=== PATIENT | male | born 1945 | race Two or more races ===

== ENCOUNTER → 2024-07-02 | Outpatient (CLI) | payer OTHER, SELFPAY ==
[2024-07-09 11:21] LABS: PSA, Free 1.56 ng/mL; PSA, Total 8.3 ng/mL (< OR = 4.0)
[2024-07-10 06:25] LABS: PSA, % Free 19 % (calc) (>25)
== END | disposition home or self-care (01) ==
PROVIDERS: PCP Nurse Practitioner Family; Referring Provider Urology; Visit Provider Urology
DX: N40.1 Benign prostatic hyperplasia with lower urinary tract symptoms (principal)
CPT/HCPCS: 36415; 84153; 84154

== ENCOUNTER → 2024-09-15 | Outpatient (BNVA) | payer OTHER, SELFPAY | END | disposition home or self-care (01) | PROVIDERS: PCP Nurse Practitioner Family; Referring Provider Nurse Practitioner Family; Visit Provider Urology | DX: N40.1 Benign prostatic hyperplasia with lower urinary tract symptoms (principal); N13.8 Other obstructive and reflux uropathy; R97.20 Elevated prostate specific antigen [PSA]; R31.29 Other microscopic hematuria; I10 Essential (primary) hypertension; E11.9 Type 2 diabetes mellitus without complications; I25.10 Atherosclerotic heart disease of native coronary artery without angina pectoris; Z95.0 Presence of cardiac pacemaker; Z96.641 Presence of right artificial hip joint; E66.9 Obesity, unspecified; Z68.26 Body mass index [BMI] 26.0-26.9, adult | CPT/HCPCS: 99212; G0463 ==

== ENCOUNTER → 2024-12-19 | Outpatient (CLI) | payer OTHER, SELFPAY ==
[2024-12-19 08:44] LABS: Basophils # (Auto) 0.1 Thou/mm3 (0.0-0.2); Basophils % (Auto) 1 % (0-2.5); Eosinophils # (Auto) 0.2 Thou/mm3 (0.0-0.5); Eosinophils % (Auto) 3 % (0-10); Hematocrit 34.5 % (41.0-53.0); Hemoglobin 11.5 g/dL (13.5-16.0); Immature Granulocytes % (Auto) 0 % (0-0); Immature Granulocytes Auto 0.02 Thou/mm3 (0.00-0.00); Lymphocytes # (Auto) 1.4 Thou/mm3 (1.0-4.8); Lymphocytes % (Auto) 24 % (10-50); Mean Corpuscular HGB Conc 33.3 g/dl (31.0-37.0); Mean Corpuscular Hemoglobin 29.4 pg (25.0-35.0); Mean Corpuscular Volume 88 fL (80-100); Monocytes # (Auto) 0.4 Thou/mm3 (0.0-0.8); Monocytes % (Auto) 6 % (0-12); Neutrophils # (Auto) 3.8 Thou/mm3 (1.8-7.7); Neutrophils % (Auto) 66 % (37-80); Nucleated Red Blood Cell % 0 /100 WBC (0); Platelet Count 210 Thou/mm3 (140-440); RDW Standard Deviation 46.1 fL (35.1-43.9); Red Blood Count 3.91 Miln/mm3 (4.50-5.90); White Blood Count 5.8 Thou/mm3 (3.8-10.6)
[2024-12-19 08:48] LABS: Glucose Estimated Average 131 mg/dL (80-131); Hemoglobin A1C 6.2 % Hgb (4.8-6.0)
[2024-12-19 09:13] LABS: Iron 93 mcg/dL (65-175)
[2024-12-19 09:14] LABS: Alanine Aminotransferase 11 U/L (10-49); Albumin, Serum 4.5 gm/dL (3.4-4.8); Albumin/Globulin Ratio 2.4 (1.2-2.2); Alkaline Phosphatase 85 U/L (46-116); Anion Gap 12 (7-16); Aspartate Amino Transferase 15 U/L (0-34); BUN/Creatinine Ratio 28 Ratio (12-20); Bilirubin,Total 0.9 mg/dL (0.3-1.2); Blood Urea Nitrogen 31 mg/dL (9-23); Calcium 10.1 mg/dL (8.3-10.6); Calcium (Corrected) 10.1 mg/dL (8.5-10.1); Carbon Dioxide 27.9 mMol/L (20.0-31.0); Cardiac Risk Estimate 2.7 RATIO (4.0-6.7); Chloride 105 mMol/L (98-107); Cholesterol 147 mg/dL (132-200); Creatinine (Component) 1.1 mg/dL (0.6-1.3); Globulin 1.9 gm/dL (2.3-3.5); Glucose 114 mg/dL (74-106); HDL Cholesterol 54 mg/dL (40-60); LDL Cholesterol,Calculated 78 mg/dL (0-130); Osmolality,Calculated 296 (275-295); Sodium 145 mMol/L (136-145); Thyroid Stimulating Hormone 1.49 uIU/mL (0.55-4.78); Total Protein 6.4 gm/dL (5.7-8.2); Triglycerides 73 mg/dL (30-150); eGFR > 60 See Note
[2024-12-19 09:15] LABS: Vitamin B12 588 pg/mL (211-911)
== END | disposition home or self-care (01) ==
PROVIDERS: PCP Nurse Practitioner Family; Referring Provider Nurse Practitioner Family; Visit Provider Nurse Practitioner Family
DX: D64.9 Anemia, unspecified (principal); E11.9 Type 2 diabetes mellitus without complications; E78.2 Mixed hyperlipidemia; I10 Essential (primary) hypertension
CPT/HCPCS: 36415; 80053; 80061; 82043; 82570; 82607; 83036; 83540; 84443; 85025

== ENCOUNTER 2025-01-02 09:35 | Emergency (ER) | payer OTHER, MEDICAID, SELFPAY ==
[2025-01-02 09:41] VITALS: BP 203/91; BP 232/109; PULSE 60; RESP 19; TEMP 37.1; O2SAT 98; BMI 22.7
[2025-01-02 09:57] VITALS: PULSE 84; RESP 16; O2SAT 97
--- NOTE | 2025-01-02 09:59 | EKG_ITS ---
[facility] Test Date: 2025-01-02 Pat Name: KARLOS STOKES Department: Room: - Gender: Male Nursing Admin: : 1945 Requested By: Nelson Aparicio Order Number: [id number] Reading MD: Nelson Aparicio Measurements Intervals [place] Rate: 60 P: 123 NC: 198 QRS: 3 QRSD: 112 T: 105 QT: 423 QTc: 423 Interpretive Statements ELECTRONIC ATRIAL PACEMAKER LEFT VENTRICULAR HYPERTROPHY AND ST-T CHANGE [VOLTAGE CRITERIA PLUS ST/T ABNORMALITY] Compared to ECG 12/19/2023 10:36:05 Left ventricular hypertrophy now present ST (T wave) deviation now present T-wave abnormality no longer present /store/S0/[id number].pdf
--- NOTE | 2025-01-02 09:59 | PD.EDADULT ---
ED General RME/HPI General Chief complaint: Fall Stated complaint: FALL WITH LAC TO LIP/CHIN, LOOSE TOOTH, NLOC Time Seen by Provider: 01/02/25 09:38 Arrival date/time: 01/02/25 09:35 Limitations: no limitations RME / HPI RME / HPI narrative: DR. APARICIO MAIN ED EVALUATION: 79 year old male presents to the Emergency Department [facility] with complaint of fall prior to arrival. Patient uses a walker to ambulate and his walker was going to fast for him and so he fell forward. He has a laceration on his lower lip but otherwise tooth is intact. No other injuries or symptoms reported at this time. Related Data Home Medications ?Medication ?Instructions ?Recorded ?Confirmed aspirin 81 mg tablet,delayed 81 mg PO QDAY 11/19/18 09/15/24 release (Aspir-) Held on 12/21/23. Instructions: PCP to resume metformin 500 mg tablet,extended 1,000 mg PO QPM 09/17/20 09/15/24 release 24 hr atorvastatin 20 mg tablet 40 mg PO QDAY 12/19/23 09/15/24 cholecalciferol (vitamin D3) 50 12/19/23 09/15/24 mcg (2,000 unit) tablet (Vitamin D3) clopidogrel 75 mg tablet 75 mg PO QDAY 12/19/23 09/15/24 Held on 12/21/23. Instructions: PCP to resume hydrochlorothiazide 12.5 mg capsule 12.5 mg PO QDAY 12/19/23 09/15/24 losartan 100 mg tablet 100 mg PO QDAY 12/19/23 09/15/24 sitagliptin phosphate 50 mg tablet 50 mg PO QDAY 12/19/23 09/15/24 (Januvia) Previous Rx's ?Medication ?Instructions ?Recorded tamsulosin 0.4 mg capsule (Flomax) 0.4 mg PO QDAY #30 caps 09/22/20 sennosides 8.6 mg tablet (Senna 8.6 mg PO BID PRN Constipation #0 12/21/23 Lax) tabs amlodipine 5 mg tablet 5 mg PO QDAY #30 tabs 12/23/23 sertraline 50 mg tablet 50 mg PO QDAY #30 tabs 12/23/23 amoxicillin 875 mg-potassium 1 tab PO BID #14 tabs 01/02/25 clavulanate 125 mg tablet Allergies Allergy/AdvReac Type Severity Reaction Status Date / Time Penicillins AdvReac Severe MADE FEEL Verified 01/02/25 10:03 LIKE HE WAS GOING TO FAINT Review of Systems Review of Systems Systems Reviewed: All systems reviewed, normal except as documented Past Medical History Past Medical History NEUROLOGIC: Positive Cerebrovascular Accident; Negative Seizures CARDIAC: Positive Coronary Artery Disease, Hypercholesterolemia and Hypertension; Negative Congestive Heart Failure RESPIRATORY: Negative Chronic Obstructive Pulmonary Disease (COPD) GENITOURINARY: Negative Renal Disease ENDOCRINE: Positive Diabetes Mellitus Type 2; Negative Diabetes Mellitus Type 1 OTHER HISTORY: Negative Blood Transfusions, Blood Transfusion Reaction or Anesthesia Reactions Surgical History SURGICAL: Positive Coronary Stent Social History SMOKING STATUS: Never smoker SUBSTANCE USE: does not use ED Exam General Limitations: Present no limitations General appearance: Present alert and in no apparent distress Expanded Head Exam Head image:  1. lower lip laceration Eye Eye exam: Present normal appearance, PERRL and EOMI ENT ENT exam: Present normal exam, normal oropharynx and mucous membranes moist Neck Neck exam: Present normal inspection, full ROM and trachea midline Chest Chest inspection: Present normal inspection and symmetric chest wall rise Respiratory Respiratory exam: Present normal lung sounds bilaterally Cardiovascular Cardiovascular exam: Present regular rate, normal rhythm and normal heart sounds Abdominal Exam Abdominal exam: Present soft and normal bowel sounds Extremities Exam Extremities exam: Present normal inspection and full ROM Back Exam Back exam: Present normal inspection and full ROM Neurological Exam Neurological exam: Present alert, oriented X3 and CN II-XII intact Psychiatric Psychiatric exam: Present normal affect and normal mood Skin Skin exam: Present warm, dry, intact and normal color Course Quality Measures none Orders Category Date Time Status Continuous Pulse Oximetry ONCE Care 01/02/25 09:59 Active EKG (ED ONLY) *Do not use* NOW Care 01/02/25 09:59 Completed Insert IV STAT Care 01/02/25 09:[address] facial bones wo con Stat Exams 01/02/25 09:59 Completed EKG (ED Only) Stat Exams 01/02/25 09:59 Draft B-Type Natriuretic Peptide Stat Lab 01/02/25 10:18 Completed CBC Stat Lab 01/02/25 10:18 Completed Comprehensive Metabolic Panel Stat Lab 01/02/25 10:18 Completed Prothrombin Time with INR Stat Lab 01/02/25 10:18 Completed Troponin I Stat Lab 01/02/25 10:18 Completed Acetaminophen Tab [Tylenol ES Tab] Med 01/02/25 11:49 Once 1,000 mg PO X1 ONE hydrALAZINE INJ [Apresoline Inj] Med 01/02/25 10:00 Discontinued 20 mg IVP X1 ONE Vital Signs Vital signs: Vital Signs Temperature 98.7 F 01/02/25 09:41 Pulse Rate 60 01/02/25 09:41 Respiratory Rate 19 01/02/25 09:41 Blood Pressure 203/91 H 01/02/25 09:41 Pulse Oximetry (%) 98 01/02/25 09:41 Oxygen Delivery Method Room Air 01/02/25 09:41 Discharge Plan Plan Patient Disposition: HOME (Self Care) Patient condition on transfer: Stable Prescriptions/Referrals Prescriptions/Med Rec: New amoxicillin-pot clavulanate 875-125 mg tablet 1 tab PO BID Qty: 14 0RF No Action aspirin [Aspir-81] 81 mg Tablet,Delayed Release (Dr/Ec) 81 mg PO QDAY metformin 500 mg tablet extended release 24 hr 1,000 mg PO QPM Patient Comments: TAKE 4 TABLET BY MOUTH IN THE EVENING WITH MEALS tamsulosin [Flomax] 0.4 mg Capsule 0.4 mg PO QDAY Qty: 30 0RF Januvia 50 mg Tablet 50 mg PO QDAY cholecalciferol (vitamin D3) [Vitamin D3] 50 mcg (2,000 unit) Tablet atorvastatin 20 mg Tablet 40 mg PO QDAY clopidogrel 75 mg Tablet 75 mg PO QDAY hydrochlorothiazide 12.5 mg Capsule 12.5 mg PO QDAY losartan 100 mg Tablet 100 mg PO QDAY sennosides [Senna Lax] 8.6 mg Tablet 8.6 mg PO BID PRN (Reason: Constipation) Qty: 0 0RF amlodipine 5 mg tablet 5 mg PO QDAY Qty: 30 0RF sertraline 50 mg tablet 50 mg PO QDAY Qty: 30 0RF Referrals: Stephanie James NP [Primary Care Provider] - In 1 week Problem List Clinical Impression: Fall, Laceration of lip Patient/Caregiver Discharge Instructions Print Language: Estonian Stand Alone Forms: Lauryn Award Info., Patient Portal Info Letter MDM Clinical Information Provided by patient and EMS Medical Records Reviewed EMS Meds/Rx Considered, not Ordered None Labs/Rad/Tests considered, not Ordered None Chronic Illness/Social Conditions which may negatively complicate care or outcome(s)-explain: None or not applicable EKG EKG Interpretation narrative: My interpretation: EKG performed at 1037 hours, paced atrial rhythm, rate 60 Imaging Radiology reports / interpretation(s): Procedure(s): CT facial bones wo con Accession Number(s): [id number] cc: Stephanie James NP; Nelson Aparicio MD; Martin Hill MD~ Examination: CT maxillofacial, without intravenous contrast. 2-D sagittal reconstructions. 3-D reconstructions. Date and time of exam:January 02, 2025 1030 hours INDICATIONS: Patient fell today with injury to the face, facial pain CTDI: vol (mGy):25.4 DLP: (mGycm):525 Technique: Multiple axial images of maxillofacial region, 3.0 mm slice thickness. 2-D sagittal and coronal reconstructions. 3-D reconstructions. Low dose protocols were performed. One or more of the following dose reduction techniques were used; automated exposure control, adjustment of the mA and/or KV according to patient size, use of iterative reconstruction technique. Findings: Frontal bone frontal sinuses intact Orbital rims appear intact No nasal bone fracture. No depression zygomatic arches Pterygoid plates maxilla intact Mandible intact Soft tissue swelling anterior to the mandibular symphysis, axial image 33 IMPRESSION: No acute facial fracture. Dictated By: Martin Hill Medication Administration(s) Medication Administration History Acetaminophen (Acetaminophen 500 Mg Tablet) 1,000 mg PO X1 ONE Stop: 01/02/25 11:50 Discontinued Medications Hydralazine HCl (Hydralazine Inj 20 Mg/Ml Vial) 20 mg IVP X1 ONE Stop: 01/02/25 10:01 Last Admin: 01/02/25 10:57 Dose: 20 mg Documented By: ASYA Diagnosis Differential diagnosis: fall, lip laceration Most likely dx, and/or detailed dx discussion: Fall Laceraion of lip Dispositon Disposition: Discharge Home
[2025-01-02 10:28] LABS: Basophils # (Auto) 0.1 Thou/mm3 (0.0-0.2); Basophils % (Auto) 1 % (0-2.5); Eosinophils # (Auto) 0.1 Thou/mm3 (0.0-0.5); Eosinophils % (Auto) 1 % (0-10); Hematocrit 35.9 % (41.0-53.0); Hemoglobin 12.7 g/dL (13.5-16.0); Immature Granulocytes % (Auto) 0 % (0-0); Immature Granulocytes Auto 0.02 Thou/mm3 (0.00-0.00); Lymphocytes # (Auto) 1.2 Thou/mm3 (1.0-4.8); Lymphocytes % (Auto) 16 % (10-50); Mean Corpuscular HGB Conc 35.4 g/dl (31.0-37.0); Mean Corpuscular Volume 85 fL (80-100); Monocytes # (Auto) 0.4 Thou/mm3 (0.0-0.8); Monocytes % (Auto) 6 % (0-12); Neutrophils # (Auto) 5.6 Thou/mm3 (1.8-7.7); Neutrophils % (Auto) 76 % (37-80); Nucleated Red Blood Cell % 0 /100 WBC (0); Platelet Count 189 Thou/mm3 (140-440); RDW Standard Deviation 43.8 fL (35.1-43.9); Red Blood Count 4.23 Miln/mm3 (4.50-5.90); White Blood Count 7.3 Thou/mm3 (3.8-10.6)
[2025-01-02 10:38] LABS: INR 1.1 (0.9-1.3); Prothrombin Time 11.8 Seconds (9.0-12.2)
[2025-01-02 10:45] LABS: Alanine Aminotransferase 12 U/L (10-49); Albumin, Serum 4.7 gm/dL (3.4-4.8); Albumin/Globulin Ratio 2.4 (1.2-2.2); Alkaline Phosphatase 93 U/L (46-116); Anion Gap 10 (7-16); Aspartate Amino Transferase 18 U/L (0-34); BUN/Creatinine Ratio 28 Ratio (12-20); Blood Urea Nitrogen 28 mg/dL (9-23); Calcium 10.7 mg/dL (8.3-10.6); Calcium (Corrected) 10.7 mg/dL (8.5-10.1); Carbon Dioxide 27.3 mMol/L (20.0-31.0); Chloride 108 mMol/L (98-107); Estimated Creatinine Clearance 56.6 mL/min (>60); Glucose 114 mg/dL (74-106); Osmolality,Calculated 295 (275-295); Potassium 3.8 mMol/L (3.4-5.1); Sodium 145 mMol/L (136-145); Total Protein 6.7 gm/dL (5.7-8.2); Troponin I 0.025 ng/mL (0.0-0.045); eGFR > 60 See Note
[2025-01-02 10:47] LABS: B-Type Natriuretic Peptide 528 pg/mL (0-100)
[2025-01-02 10:57] VITALS: BP 208/87; PULSE 62
[2025-01-02] MEDS: hydrALAZINE INJ 20 MG/ML VIAL IVP (10:57)
[2025-01-02 11:30] VITALS: BP 140/67; PULSE 65; RESP 18; TEMP 36.7; O2SAT 98
[2025-01-02] MEDS: ACETAMINOPHEN 500 MG TABLET 1000 MG PO (12:05)
== END 2025-01-02 12:30 | disposition home or self-care (01) ==
PROVIDERS: Emergency Provider Emergency Medicine; PCP Nurse Practitioner Family
DX: S01.511A Laceration without foreign body of lip, initial encounter (principal); W19.XXXA Unspecified fall, initial encounter; R94.31 Abnormal electrocardiogram [ECG] [EKG]; I10 Essential (primary) hypertension; E78.00 Pure hypercholesterolemia, unspecified; I25.10 Atherosclerotic heart disease of native coronary artery without angina pectoris; Z95.5 Presence of coronary angioplasty implant and graft
CPT/HCPCS: 36415; 70486; 80053; 83880; 84484; 85025; 85610; 93005; 96374; 99284; J0360; A9270